=== PATIENT | male | born 1975 | race Asian ===

== ENCOUNTER → 2018-07-08 | Outpatient (CLI) | payer BC | END | disposition home or self-care (01) | LOC: LAB 12:11 | PROVIDERS: ATTEND Internal Medicine | DX: M17.11 Unilateral primary osteoarthritis, right knee (principal); E78.5 Hyperlipidemia, unspecified; R73.03 Prediabetes; N40.0 Benign prostatic hyperplasia without lower urinary tract symptoms | CPT/HCPCS: 73562; 80053; 80061; 81001; 81003; 83036; 84153; 84154; 85025 ==